=== PATIENT | male | born 1975 | race Caucasian/White ===

== ENCOUNTER 2021-02-14 10:43 | Emergency (ER) | payer OTHER, SELFPAY ==
[2021-02-14 10:53] VITALS: BP 118/97; PULSE 83; RESP 18; TEMP 36.1; O2SAT 99
--- NOTE | 2021-02-14 11:20 | ED.ABDPAIN ---
HPI - Abdominal Pain General Chief Complaint: Abdominal Pain Stated Complaint: poss kidney infection Time Seen by Provider: 02/14/21 11:02 Source: patient Mode of arrival: ambulatory Limitations: no limitations History of Present Illness HPI narrative: This is a 45 year old male who presents for evaluation of left lower abdominal pain. He developed pain 4 days ago and he states his pain has been constant. He has not been taking anything for pain but his pain has improved. He states this pain does radiate to his lower back . He denies associated nausea, vomiting, diarrhea, constipation, chills or fever. He has intermittent dysuria. He states 1 year ago he had similar pain with a kidney infection. He denies history of diverticulitis. His pain is 4/10. Related Data Home Medications Medication Instructions Recorded Confirmed sumatriptan succinate mg PO 02/14/21 Allergies Allergy/AdvReac Type Severity Reaction Status Date / Time No Known Allergies Allergy Unknown Verified 02/14/21 10:58 Review of Systems Review of Systems: All systems reviewed & are unremarkable except as noted in HPI and below PMFSH Past Medical History Medical History (Updated 02/14/21 @ 11:52 by Karina Marie MD) Hyperlipidemia Migraine Surgical History Surgical History (Updated 02/14/21 @ 11:27 by Karina Marie MD) No significant past surgical history Social History Social History (Updated 02/14/21 @ 11:28 by Karina Marie MD) Smoking status: Never smoker Exam Const: General: no acute distress and alert Orientation/consciousness: patient oriented x3 Eyes: EOM: EOMs intact bilaterally Resp: Effort & Inspection: normal respiratory effort and no retractions Auscultation: clear to auscultation bilaterally Cardio: Rate: regular rate Rhythm: regular rhythm Heart sounds: no murmurs GI: GI Palp: Yes Soft to palpation, Yes Tenderness to palpation present (GI) (LLQ), No Guarding due to palpation present (GI) and No Rigid due to palpation Auscultation: normal bowel sounds : General: Yes no CVA tenderness Skin: General skin exam: normal color Rashes: no rashes Neuro: General: patient oriented x3, moves all extremities and CN's II-XI intact bilaterally Psych: Mental Status: mental status grossly normal Affect: normal affect Course Reevaluation(s) Reevaluation #1: Patient walked out of ER. Nursing staff reported patient stated it was taking too long. Date: 02/14/21 Time: 11:51 Vital Signs Vital signs: Vital Signs Temperature 97.0 F L 02/14/21 10:53 Pulse Rate 83 02/14/21 10:53 Respiratory Rate 18 02/14/21 10:53 Blood Pressure 118/97 H 02/14/21 10:53 Pulse Oximetry 99 02/14/21 10:53 Temperature 97.0 F L 02/14/21 10:53 Pulse Rate 82 02/14/21 11:59 Respiratory Rate 16 02/14/21 11:59 Blood Pressure 133/95 H 02/14/21 11:59 Pulse Oximetry 96 02/14/21 11:59 Discharge Plan Discharge Clinical Impression: Abdominal pain, acute, left lower quadrant Patient Disposition: Left Against Medical Advice Condition: Guarded Prognosis Instructions: Antibiotic Form Prescriptions: No Action sumatriptan succinate 100 mg tablet PO RF: 0 Follow-up/Referrals: Juan,SRINIVAS Pride [Primary Care Provider] -
--- NOTE | 2021-02-14 11:49 | PC.NURSE ---
1145 pt left AMA. RN asked why pt wanted to leave, pt stated, I just want to leave, I don't want to be here. Pt signed AMA form.
[2021-02-14 11:59] VITALS: BP 133/95; PULSE 82; RESP 16; O2SAT 96
== END 2021-02-14 11:45 | disposition left against medical advice (07) ==
PROVIDERS: Emergency Provider General Practice; PCP Physician Assistant
DX: R10.32 Left lower quadrant pain (principal); E78.5 Hyperlipidemia, unspecified
CPT/HCPCS: 99281

== ENCOUNTER 2021-10-25 10:56 | Outpatient (CLI) | payer OTHER, SELFPAY | END 2021-10-25 10:57 | disposition home or self-care (01) | LOC: ANHAUDIO 10:56 | PROVIDERS: PCP Physician Assistant; Visit Provider Nurse Practitioner Family | DX: H93.13 Tinnitus, bilateral (principal) | CPT/HCPCS: 92557; 92567 ==

== ENCOUNTER 2021-11-29 07:55 | Outpatient (RCR) | payer OTHER, SELFPAY | END 2021-11-29 23:59 | disposition home or self-care (01) | LOC: ANHAUDIO 07:55 | PROVIDERS: PCP Physician Assistant; Visit Provider Physician Assistant | DX: Z46.1 Encounter for fitting and adjustment of hearing aid (principal) | CPT/HCPCS: V5160; V5257 ==

== ENCOUNTER 2023-08-29 09:09 | Emergency (ER) | payer SELFPAY ==
--- NOTE | ~2023-08-29 | XR_ITS ---
EXAMINATION: XR chest 2V DATE: 08/29/2023 09:31 INDICATION: Left-sided chest pain TECHNIQUE: PA and lateral views of the chest are obtained. COMPARISON: 05/17/2014 FINDINGS: The lungs are free of acute opacities. No pleural effusion or pneumothorax. The cardiomedia stinal silhouette is normal. There is mild thoracic spondylosis. A calcified nodule of the left upper lobe is consistent with old granulomatous disease. IMPRESSION: 1. No acute cardiopulmonary abnormality. Reviewed, dictated and finalized at location A.
[2023-08-29 09:16] VITALS: PULSE 102; RESP 20; O2SAT 97
--- NOTE | 2023-08-29 09:16 | ECG_ITS ---
Measurements Intervals [place] Rate: 96 P: 26 [place]: 122 QRS: 31 QRSD: 92 T: 24 QT: 342 QTc: 434 Interpretive Statements SINUS RHYTHM WITH OCCASIONAL VENTRICULAR PREMATURE COMPLEXES NONSPECIFIC ST & T-WAVE ABNORMALITY NO PREVIOUS ECG AVAILABLE FOR COMPARISON Electronically Signed On 08-29-2023 15:45:24 CDT by Abigail Hopson M.D.
[2023-08-29 09:17] VITALS: BP 138/92; PULSE 102; PULSE 97; RESP 17; RESP 18; TEMP 36.9; O2SAT 100; O2SAT 98
[2023-08-29 09:20] VITALS: PULSE 105
[2023-08-29] MEDS: ASPIRIN 81 MG CHEWABLE TABLET 324 MG PO (09:24)
[2023-08-29 09:34] VITALS: PULSE 95; RESP 21; O2SAT 98
--- NOTE | 2023-08-29 09:37 | ED.CHESTPAIN ---
HPI - Chest Pain General Chief Complaint: Chest Pain Stated Complaint: chest pain Time Seen by Provider: 08/29/23 09:23 History of Present Illness HPI narrative: This is a 48-year-old male, with past history of hypertension hyperlipidemia, presenting to the emergency department complaining of left upper chest pain for the past day. The patient states this yesterday, after waking he noted a dull, 3/10 and constant pain in the left upper chest that does not radiate. There are no known aggravating factors, though it appeared to improve with lying down. He has no other complaints today. Related Data Home Medications Medication Instructions Recorded Confirmed sumatriptan succinate 100 mg tablet mg PO 02/14/21 Allergies Allergy/AdvReac Type Severity Reaction Status Date / Time No Known Allergies Allergy Unknown Verified 08/29/23 09:21 Review of Systems Review of Systems: CONSTITUTIONAL: Denies fever, chills, or sweats. CARDIOVASCULAR: Chest pain denies palpitations, or edema. RESPIRATORY: Denies cough or dyspnea. GASTROINTESTINAL: Denies abdominal pain, nausea, vomiting, or diarrhea. GENITOURINARY: Denies dysuria or hematuria. SKIN: Denies rash or itching. MUSCULOSKELETAL: Denies back pain, joint pain, or myalgia. NEUROLOGIC: Denies headache, numbness, dizziness, or weakness. PSYCHIATRIC: Denies anxiety or depression. [facility] Past Medical History Medical History (Updated 08/30/23 @ 00:00 by Christy Richardson) HTN (hypertension), benign Hyperlipidemia Migraine Surgical History Surgical History No significant past surgical history Social History Social History (Updated 08/29/23 @ 09:48 by Henri Bennett MD) Smoking status: Never smoker Alcohol intake: never Substance use: never Exam Narrative: GENERAL: Well-developed, well-nourished, and in no acute distress. HEAD: Normocephalic, atraumatic. EYES: PERRLA and EOMI. CHEST: Clear to auscultation. No respiratory distress. No wheezes rales or rhonchi. Reproducible pain to palpation of the left anterior chest wall, just medial to the left shoulder HEART: Regular rate and rhythm. No murmur heard. Normal peripheral pulses. ABDOMEN: Soft, nontender, nondistended, normal active bowel sounds. EXTREMITIES: Normal range of motion. No edema. SKIN: Warm, dry, no rash. NEURO: Alert and oriented x3. Moving all 4 limbs purposefully. PSYCH: Normal mood and affect. Course Course Emergency Course: 10:27 - CBC unremarkable. Chemistries demonstrate mild hyperglycemia at 113 but are otherwise unremarkable. EKG not concerning for ischemia. Troponin negative. Chest x-ray unremarkable. Heart score 3. Given the reproduction of the patient's pain with palpation, negative troponin and EKG, I suspect the patient's pain is musculoskeletal in nature. I have a low suspicion for ACS. Will discharge with recommendations for RICE therapy and follow-up with his primary care doctor. Discussed return and emergency precautions including signs/symptoms of ACS and respiratory distress. The patient voiced understanding and is comfortable with the plan. All questions answered to his satisfaction. Vital Signs Vital signs: Vital Signs Pulse Rate 102 H 08/29/23 09:16 Respiratory Rate 20 08/29/23 09:16 Pulse Oximetry 97 08/29/23 09:16 Temperature 98.4 F 08/29/23 09:17 Pulse Rate 91 08/29/23 10:56 Respiratory Rate 20 08/29/23 10:56 Blood Pressure 134/80 08/29/23 10:56 Pulse Oximetry 96 08/29/23 10:56 Oxygen Delivery Room Air 08/29/23 09:17 MDM - Chest Pain MDM Narrative Medical decision making narrative: Plan: Labs, imaging, pain control, EKG, troponin, reassess Differential Diagnosis Differential diagnosis: Likely pneumothorax, costochondritis and other (Musculoskeletal pain, ACS, metabolic abnormality, other) Lab Data 08/29/23 09:26 08/29/23 09:26
[2023-08-29 09:39] LABS: Basophils Absolute Auto 0.1 K/mm3 (0.0-0.1); Basophils Percent Auto 0.6 % (0.2-1.2); Eosinophils Absolute Auto 0.1 K/mm3 (0-0.3); Eosinophils Percent Auto 1.8 % (0-4.4); Hematocrit 42.8 % (42.0-52.0); Hemoglobin 15.1 g/dL (14.0-18.0); Immature Granulocyte Absolute 0.02 K/mm3 (0.00-0.031); Immature Granulocyte Percent A 0.3 % (0-0.5); Lymphocytes Absolute Auto 1.84 K/mm3 (0.9-3.2); Lymphocytes Percent Auto 23.4 % (18.3-44.2); Mean Corpuscular HGB Conc 35.3 g/dl (32-36); Mean Corpuscular Volume 90.7 fl (80-100); Mean Platelet Volume 10.4 fl (7.4-10.4); Monocytes Absolute Auto 0.6 K/mm3 (0.1-0.6); Neutrophils Absolute Auto 5.3 K/mm3 (1.3-6.7); Neutrophils Percent Auto 66.9 % (45.5-73.1); Platelet Count Result 220 k/mm3 (150-375); Red Blood Count 4.72 M/mm3 (4.6-6.20); Red Cell Distribution Width 12.8 % (11.5-14.5); White Blood Count 7.9 K/mm3 (4.5-10.0)
[2023-08-29 09:44] LABS: Prothrombin Time 13.5 Seconds (11.1-14.7)
[2023-08-29 09:45] LABS: Partial Thromboplastin Time 24.5 SECONDS (22.3-36.8)
[2023-08-29] MEDS: NITROGLYCERIN SL 0.4 MG TABLET SUBLINGUAL (09:46)
--- NOTE | 2023-08-29 09:47 | PC.NURSE ---
NTG given SL for chest pain 02/02.
--- NOTE | 2023-08-29 09:53 | PC.NURSE ---
Reports chest pain 12/05. VS 130/84 93 19 94%. 2nd NTG given.
[2023-08-29 09:59] LABS: Alanine Aminotransferase 49 U/L (6-50); Albumin Level 4.7 g/dL (3.5-5.1); Alkaline Phosphatase 97 U/L (38-126); Anion Gap 11 mmol/L (8-16); Aspartate Amino Transferase 40 U/L (17-59); Blood Urea Nitrogen 13 mg/dL (9-20); Calcium 9.2 mg/dL (8.4-10.2); Carbon Dioxide 24 mmol/L (22-30); Chloride 106 mmol/L (98-107); Estimated CRCL calculation 116 ml/min; Estimated Glomerular Filt Rate > 60; Glucose 113 mg/dL (65-110); Lipase 103 U/L (23-300); Potassium 3.5 mmol/L (3.4-5.0); Sodium 141 mmol/L (137-145)
[2023-08-29 10:04] VITALS: BP 126/88; PULSE 98; RESP 20; O2SAT 95
--- NOTE | 2023-08-29 10:04 | PC.NURSE ---
Denies further cp
[2023-08-29 10:09] LABS: Troponin I < 0.012 ng/mL (0.000-0.034)
[2023-08-29 10:14] LABS: D Dimer 0.35 ug/mL (<0.48)
[2023-08-29 10:56] VITALS: BP 134/80; PULSE 91; RESP 20; O2SAT 96
== END 2023-08-29 10:58 | disposition home or self-care (01) ==
PROVIDERS: Emergency Provider Preventive Medicine Aerospace Medicine; PCP Internal Medicine
DX: R07.89 Other chest pain (principal); M94.0 Chondrocostal junction syndrome [Tietze]; E78.5 Hyperlipidemia, unspecified; I10 Essential (primary) hypertension; I49.3 Ventricular premature depolarization; R94.31 Abnormal electrocardiogram [ECG] [EKG]
CPT/HCPCS: 36415; 71046; 80053; 83690; 84484; 85025; 85380; 85610; 85730; 93005; 99284; A9270

== ENCOUNTER 2025-03-23 14:11 | Emergency (ER) | payer SELFPAY ==
[2025-03-23 14:23] VITALS: BP 135/78; PULSE 98; RESP 17; TEMP 36.7; O2SAT 99
--- OUTSIDE RECORDS SUMMARY | 2025-03-23 16:13 | XMS_ITS | CONTINUITY OF CARE DOCUMENT ---
Author Name [email or web address] Address Unknown Organization [facility] Address [address] [place] [address] Phone [phone] Care Team Providers Care Power Washer Name Role Phone Colby gArawal MD Unavailable ADRIANA WOODARD Unavailable ADRIANA WOODARD Unavailable PROBLEMS Condition Status Date Provider Notes Dyslipidemia active [place] [place] Liver steatosis active Colby Agrawal MD ENCOUNTERS Date Type Provider Location Encounter Diagnosis - In-person encounter Office Visit Colby Agrawal MD [facility] Liver steatosis - In-person encounter Office Visit Colby Agrawal MD [facility] VITAL SIGNS Date Observation Value Provider Body Mass Index (Ratio) 29.27 kg/m2 Christiano Vides blood pressure, diastolic 80 mm[Hg] Sanna [facility] blood pressure, systolic 138 mm[Hg] Jeannette Vogelogsharan blood pressure, diastolic 80 mm[Hg] Kathy Ferrer blood pressure, systolic 138 mm[Hg] Roxana Ferrer oxygen saturation, oximetry 97 % Jaky Ferrer respiratory rate E&M 16 /min Casimiro Ferrer pulse rate 100 /min Jaky lyn weight E&M 228 [lb_av] Jaky lyn height E&M 74 [in_i] Jaky lyn oxygen saturation, oximetry 98 % Medardo Manacop blood pressure, diastolic 80 mm[Hg] Sharla seph [place] blood pressure, systolic 110 mm[Hg] Oswaldo eph [place] pulse rate 72 /min Council [place] respiratory rate E&M 16 /min Medardo [place] weight E&M 183 [lb_av] [facility] [place] ALLERGIES No Known Drug Allergies RESULTS Date Observation Value Provider Reference Range Interpretation Location magnesium, serum 2.2 mg/dL [facility] 1.6-2.3 triiodothyronine (T3), serum 160 ng/dL [facility] 71-180 pro brain natriuretic peptide <5 pg/mL [facility] 0-86 thyroid stimulating hormone, serum 0.566 u[IU]/mL [facility] 0.450-4.500 thyroxine, serum, free 1.06 ng/dL [facility] 0.82-1.77 alanine aminotransferase (SGPT), serum 67 1/L [facility] 0-44 High aspartate aminotransferase (SGOT), serum 41 1/L [facility] 0-40 High alkaline phosphatase, serum 140 1/L [facility] 48-121 High bilirubin, serum, total 0.8 mg/dL [facility] 0.0-1.2 albumin/globulin ratio, serum 1.7 [facility] 1.2-2.2 globulin, serum 3.0 [facility] 1.5-4.5 albumin, serum 5.0 g/dL [facility] 4.0-5.0 protein, total, serum 8.0 g/dL [facility] 6.0-8.5 calcium, serum 10.2 mg/dL [facility] 8.7-10.2 carbon dioxide, venous blood 22 mmol/L [facility] 20-29 chloride, serum 101 mmol/L [facility] 96-106 potassium, serum 4.2 mmol/L [facility] 3.5-5.2 sodium, serum 137 mmol/L [facility] 852-343 0253/06/ 24 urea nitrogen/creatinine ratio, serum 18 [facility] 9-20 eGFR if 108 mL/min/{1 .73_m2} [facility] >59 eGFR if not 93 mL/min/{1 .73_m2} [facility] >59 creatinine, serum 0.98 mg/dL [facility] 0.76-1.27 urea nitrogen, blood 18 mg/dL [facility] 6-24 blood glucose, random 127 [facility]/dL [facility] High thyroid stimulating hormone, serum 0.775 u[IU]/mL Leona Hoyos RN thyroxine, serum, free 1.21 ng/dL Leona Hoyos RN platelet count 234 10*3/uL Leona Hoyos RN hematocrit, blood 45.4 % Leona Hoyos RN hemoglobin, blood 15.4 g/dL Leona Hoyos RN leukocyte count, blood 8.3 10*3/mm3 Leona Hoyos RN triglyceride, serum, fasting 93 mg/dL Leona Hoyos RN HDL cholesterol, serum 51 mg/dL Leona Hoyos RN LDL cholesterol, serum 130 mg/dL Leona Hoyos RN cholesterol, serum 200 mg/dL Leona Hoyos RN HISTORY OF MEDICATION USE Medication Status Instructions Dates Provider Indications Com ments IBUPROFEN TABLET active 4 tablets by mouth in the morning Medardo Sanchez TYLENOL WITH CODEINE #3 TABLET completed 1 tablet by mouth at bedtime - 0 Jaky Ferrer LIPITOR TABLET active 1 tablet by mout h daily Medardo Manacop SOCIAL HISTORY Date Observation Value Provider number of grandchildren Colby Agrawal MD smoking status Never smoker Colby christopher MD social history reviewed E&M revi ewed - no changes required Colby Agrawal MD physical exercise, f requency, days per week no Jaky Ferrer caffeine use, averag e drinks per day yes Jaky Ferrer smoking status never smoker Rachelle Umberto social history E&M Marital Statu s: L jayden with family/friends E thnicity: Kole Turcios RN social history reviewed E&M reviewed Kole Turcios RN physical exercise, f requency, days per week no [facility] caffeine use, averag e drinks per day yes [facility] alcohol use, average drinks per day none [facility] smoking status Non-smoker [facility] MENTAL STATUS Date Observation Value Provider assessment of judgme nt and insight E&M Alert and oriented to time, place and person. Mood and affect are normal. Kole Turcios RN INSURANCE PROVIDERS Payer name Policy type / Coverage type [employer] party ID [place] MEDICA[employer] (2) Medicaid [id number] ADVANCE DIRECTIVES Name Date DISCUSSED - NO DECISION MADE TREATMENT PLAN Date Name Performer [id number],S, Dinora navas [id number],C,N o recurrence for the past 10-15 years per patient report. Colby Agrawal MD [id number],C,C ontinues on Lipitor. Lipid panel pending. Colby gArawal MD [id number],C,P alpitations for the past month. Will arrange echo and heart monitor. Colby Agrawal MD Cardiology Dinora Vides Cardiology:No recurr ence for the past 10-15 years per patient report. Colby Agrawal MD Cardiology:Continues on Lipitor. Lipid panel pending. Colby Agrawal MD Cardiology:Palpitati ons for the past month. Will arrange echo and heart monitor. Colby Agrawal MD Date Name Complete Echo MAGNESIUM PROBNP, N TERMINAL COMPREHENSIVE METABO LIC PANEL, W/EGFR TSH, 3RD GENERATION T3, TOTAL T-4, FREE Monitor - Telemetry (Mobile Cardiac) Holter Monitor 24 Hr Event Recorder Stress Test - Nuclea r Complete Echo HISTORY OF PROCEDURES Procedure Date Procedure Name Provider Procedure Notes S tatus Event Monitor Colby Agrawal MD comp leted EKG Colby Agrawal MD complet ed
--- OUTSIDE RECORDS SUMMARY | 2025-03-23 16:13 | XMS_ITS | Clinical Summary ---
Demographics Address [facility][birth year][address] [address] Home Phone Preferred Language Unknown Marital Status Unknown Worship Affiliation Unknown Race White Ethnic Group Unknown Author Organization [facility] Address [facility] [place] [address] Care Team Providers Care Front Desk Worker Name Role Phone Unavailable Primary Care Provider Unavailabl e Social History Tobacco Use Types Packs/Day Years Used Date Smoking Tobacco: Never Assessed Sex and Gender Information Value Date Recorded Sex Assigned at Not on file Legal Sex Male 6:42 PM CDT Gender Identity Not on file Sexual Orientation Not on file Plan of Treatment Health Maintenance Due Date Last Done Comments Colorectal Cancer Screening Colonoscopy (10 Years) 1976 Annual Physical 1979 Hepatitis C 1994 DTaP, Tdap and Td Vaccines ( 1 - Tdap) 1995 Hepatitis B Vaccines (1 of 3 - 19+ 3-dose series) 1995 COVID-19 Vaccine ( - 2023-2 5 season) 2024 Meningococcal B Vaccine Aged Out No l onger eligible based on patient's age to complete this topic Meningococcal Vaccine Aged Out No car wayne eligible based on patient's age to complete this topic Pneumococcal Vaccine: Pediat rics (0 to 5 Years) and At-Risk Patients (6 to 49 Years) Aged Out No longer eligible b ased on patient's age to complete this topic RSV Immunizations Under 20 Months Aged Out No longer eligible based on patient's age to complete this topic
--- OUTSIDE RECORDS SUMMARY | 2025-03-23 16:13 | XMS_ITS | Data Portability ---
[facility] Address [address] [place] [address] Care Team Providers Care Counselor At Law Name Role Phone WINIFRED DICKEY Primary Care Provider Assessment Encounter Date Assessment Date Assessment LastModified by Organization Details LastModified Time 03/11/2024 03/11/2024 Blood pressure controlled. Dyslipidemia check labs low vitamin D level check labs negative Cologuard in 2022. Hepatic steatosis weight loss follow-up with ar in 6 months [email or web address] Not available 03/23/2024 15:19:52 09/16/2024 09/16/2024 hypertension controlled. Healthy lifestyle care instructions. Blood work. we will side effects from medications he will follow up in 6 months continue with the losartan atorvastatin and conservative measures for GERD [email or web address] Not available 09/16/2024 21:53:34 01/20/2025 01/20/2025 blood pressure is controlled healthy lifestyle care instructions blood work to workup his anemia to include thyroid studies cortisol testosterone. He will follow up in 4 months continue current therapy [email or web address] Not available 01/20/2025 17:51:53 Plan of Treatment Reminders Order Date Submit Date Provider Last Modified By Organization Details Last Modified Time Details Appointments ANY 15 2024 01:00P M Winifred Dickey MD Not available Not available Not available Lab CBC w/ auto diff 2024 025 [email or web address] [facility], [address] [address], [place], [address], 03/05/2025 11:21:55 CMP, serum or plasma 2024 025 [email or web address] [facility], [address], [place], [address], 01/21/2025 13:15:23 lipid panel, serum 2024 025 [email or web address], [address], [place], [address], 03/05/2025 11:21:55 testoster one, free + total, serum 2024 025 [facility], [address], [place], [address], 03/05/2025 11:21:55 cortisol, serum or plasma 2024 025 [facility], [address], [place], [address], 03/05/2025 11:21:55 T4, free, serum 2024 025 [facility], [address], [place], [address], 03/05/2025 11:21:55 T3, free, serum or plasma 2024 025 [facility], [address], [place], [address], 03/05/2025 11:21:55 TSH, ultra-sen sitive, serum 2024 025 [facility], [address], [place], [address], 03/05/2025 11:21:56 CMP, serum or plasma 2023 024 IRENE [facility], [address], [place], [address], 09/17/2024 06:21:54 lipid panel, serum 2023 024 [facility], [address], [place], [address], 09/17/2024 06:21:53 PSA, total, serum or plasma 2023 024 [facility], [address], [place], [address], 06/17/2024 10:14:37 vitamin D, 25-hydrox y, total, serum 2023 024 [facility], [address], [place], [address], 06/17/2024 10:14:38 CBC w/ auto diff 2023 024 [facility], [address], [address], [place], [address], 06/17/2024 10:14:36 CMP, serum or plasma 2023 024 [facility], [address], [address], [place], [address], 06/17/2024 10:14:35 lipid panel, serum 2023 024 [facility], [address], [place], [address], 06/17/2024 10:14:34 Referral None recorded. Procedures None recorded. Surgeries None recorded. Imaging None recorded. Medication Orders ciproflox acin [address] [id number], [address] [facility], [place], [place], [id number], 01/20/2025 17:03:24 folic acid 1 mg tablet 2023 024 [id number], [address] [facility], [place], [place], [id number], 03/11/2024 16:00:57 Patient TargetsNo targets recorded. Patient Instructions Encounter Date Encounter Id Patient Instructions Last Modified By Organization Details Last Modified Time 09/06/2023 [id number] When You Want to Lose Weight: Care Instructions [email or web address] Not available 09/06/2023 17:50:04 A healthy lifestyle: care instructions sieh Not available 09/06/2023 17:50:04 folate deficienc y anemia: care instructions si Not available 09/06/2023 17:50:04 learning about high blood pressure [email or web address] Not available 09/06/2023 17:50:04 high cholesterol : care instructions [facility] Not available 09/06/2023 17:50:04 12/13/2023 [id number] Urinary Tract Infections (UTI) in Men: Care Instructions [facility] Not available 12/14/2023 12:24:17 A healthy lifestyle: care instructions sieh Not available 12/14/2023 12:24:17 09/16/2024 [id number] A healthy lifestyle: care instructions [email or web address] Not available 09/16/2024 13:01:35 01/20/2025 [id number] A healthy lifestyle: care instructions [email or web address] Not available 01/20/2025 17:26:15 Reason for Referral None Reported. Results Created Date Observation Date Name Description Value Unit Range Abnormal Flag Note LastModifiedBy Organization Detail LastModifiedTime 06/16/20 24 06/17/2024 LIPID PANEL cholesterol, total 103 mg/dL 100-19 9 Not Available [facility] ([facility]) [address] [facility] [address], [place], [address], 06/17/2024 10:14:34 06/16/20 24 06/17/2024 LIPID PANEL triglyceride s 75 mg/dL 0-149 Not Available [facility] ([facility]) [address] [facility] [address], [place], [address], 06/17/2024 10:14:34 06/16/20 24 06/17/2024 LIPID PANEL HDL cholesterol 38 mg/dL >39 below low normal Not Available [facility] ([facility]) [address] [facility], [place], [address], 06/17/2024 10:14:34 06/16/20 24 06/17/2024 LIPID PANEL VLDL cholesterol darrion 16 mg/dL 5-40 Not Available [facility] ([facility]) [address] [facility], [place], [address], 06/17/2024 10:14:34 06/16/20 24 06/17/2024 LIPID PANEL LDL chol calc ([facility]) 49 mg/dL 0-99 Not Available [facility] ([facility]) [address] [facility] [place], [address], 06/17/2024 10:14:34 06/16/20 24 06/17/2024 COMP. METAB OLIC PANEL (14) glucose 109 mg/dL 70-99 above high normal Not Available [facility] ([facility]) [address] [place], [address], 06/17/2024 10:14:35 06/16/20 24 06/17/2024 COMP. METAB OLIC PANEL (14) BUN 16 mg/dL 6-24 Not Available [facility] ([facility]) [address] [place], [address], 06/17/2024 10:14:35 06/16/20 24 06/17/2024 COMP. METAB OLIC PANEL (14) creatinine 0.84 mg/dL 0.76-1 .27 Not Available [facility] ([facility]) [address] [facility] [place], [address], 06/17/2024 10:14:35 06/16/20 24 06/17/2024 COMP. METAB OLIC PANEL (14) eGFR 108 mL/mi n/1.7 3 >59 Not Available [facility] ([facility]) [address] [place], [address], 06/17/2024 10:14:35 06/16/20 24 06/17/2024 COMP. METAB OLIC PANEL (14) BUN/creatini ne ratio 19 9-20 Not Available [facility] ([facility]) [address] [facility] [place], [address], 06/17/2024 10:14:35 06/16/20 24 06/17/2024 COMP. METAB OLIC PANEL (14) sodium 142 mmol/ L 134-14 4 Not Available [facility] ([facility]) [address] [facility] [place], [address], 06/17/2024 10:14:35 06/16/20 24 06/17/2024 COMP. METAB OLIC PANEL (14) potassium 4.4 mmol/ L 3.5-5. 2 Not Available [facility] ([facility]) [address] [facility] [address], [place], [address], 06/17/2024 10:14:35 06/16/20 24 06/17/2024 COMP. METAB OLIC PANEL (14) chloride 105 mmol/ L 96-106 Not Available [facility] ([facility]) [address] [facility] [place], [address], 06/17/2024 10:14:35 06/16/20 24 06/17/2024 COMP. METAB OLIC PANEL (14) carbon dioxide, total 23 mmol/ L 20-29 Not Available [facility] ([facility]) [address] [place], [address], 06/17/2024 10:14:35 06/16/20 24 06/17/2024 COMP. METAB OLIC PANEL (14) calcium 9.8 mg/dL 8.7-10 .2 Not Available [facility] ([facility]) [address] [place], [address], 06/17/2024 10:14:35 06/16/20 24 06/17/2024 COMP. METAB OLIC PANEL (14) protein, total 7.4 g/dL 6.0-8. 5 Not Available [facility] ([facility]) [address] [place], [address], 06/17/2024 10:14:35 06/16/20 24 06/17/2024 COMP. METAB OLIC PANEL (14) albumin 4.8 g/dL 4.1-5. 1 Not Available [facility] ([facility]) [address] [place], [place], [address], 06/17/2024 10:14:35 06/16/20 24 06/17/2024 COMP. METAB OLIC PANEL (14) globulin, total 2.6 g/dL 1.5-4. 5 Not Available [facility] ([facility]) [address], [place], [address], 06/17/2024 10:14:35 06/16/20 24 06/17/2024 COMP. METAB OLIC PANEL (14) bilirubin, total 1.0 mg/dL 0.0-1. 2 Not Available [facility] ([facility]) [address] [place], [address], 06/17/2024 10:14:35 06/16/20 24 06/17/2024 COMP. METAB OLIC PANEL (14) alkaline phosphatase 96 IU/L 44-121 Not Available [facility] ([facility]) [address] [place], [place], [address], 06/17/2024 10:14:35 06/16/20 24 06/17/2024 COMP. METAB OLIC PANEL (14) AST (SGOT) 31 IU/L 0-40 Not Available [facility] ([facility]) [address], [place], [address], 06/17/2024 10:14:35 06/16/20 24 06/17/2024 COMP. METAB OLIC PANEL (14) ALT (SGPT) 52 IU/L 0-44 above high normal Not Available [facility] ([facility]) [address] [facility], [place], [address], 06/17/2024 10:14:35 06/16/20 24 06/17/2024 CBC WITH DIFFE RENTI AL/PL ATELE T WBC 7.1 x10e3 /uL 3.4-10 .8 Not Available [facility] ([facility]) [address] [facility], [place], [address], 06/17/2024 10:14:36 06/16/20 24 06/17/2024 CBC WITH DIFFE RENTI AL/PL ATELE T RBC 4.80 x10e6 /uL 4.14-5 .80 Not Available [facility] ([facility]) [address] [facility], [place], [address], 06/17/2024 10:14:36 06/16/20 24 06/17/2024 CBC WITH DIFFE RENTI AL/PL ATELE T hemoglobin 15.2 g/dL 13.0-1 7.7 Not Available [facility] ([facility]) [address] [facility], [place], [address], 06/17/2024 10:14:36 06/16/20 24 06/17/2024 CBC WITH DIFFE RENTI AL/PL ATELE T hematocrit 45.1 % 37.5-5 1.0 Not Available [facility] ([facility]) [address] [facility], [place], [address], 06/17/2024 10:14:36 06/16/20 24 06/17/2024 CBC WITH DIFFE RENTI AL/PL ATELE T MCV 94 fL 79-97 Not Available [facility] ([facility]) [address] [facility], [place], [address], 06/17/2024 10:14:36 06/16/20 24 06/17/2024 CBC WITH DIFFE RENTI AL/PL ATELE T MCH 31.7 pg 26.6-3 3.0 Not Available [facility] ([facility]) [address] [facility], [place], [address], 06/17/2024 10:14:36 06/16/20 24 06/17/2024 CBC WITH DIFFE RENTI AL/PL ATELE T MCHC 33.7 g/dL 31.5-3 5.7 Not Available [facility] ([facility]) [address] [facility], [place], [address], 06/17/2024 10:14:36 06/16/20 24 06/17/2024 CBC WITH DIFFE RENTI AL/PL ATELE T RDW 11.8 % 11.6-1 5.4 Not Available [facility] ([facility]) [address] [facility], [place], [address], 06/17/2024 10:14:36 06/16/20 24 06/17/2024 CBC WITH DIFFE RENTI AL/PL ATELE T platelets 230 x10e3 /uL 150-45 0 Not Available [facility] ([facility]) [address] [facility], [place], [address], 06/17/2024 10:14:36 06/16/20 24 06/17/2024 CBC WITH DIFFE RENTI AL/PL ATELE T neutrophils 58 % notest ab. Not Available [facility] ([facility]) [address] [facility], [place], [address], 06/17/2024 10:14:36 06/16/20 24 06/17/2024 CBC WITH DIFFE RENTI AL/PL ATELE T lymphs 30 % notest ab. Not Available [facility] ([facility]) [address] [place], [address], 06/17/2024 10:14:36 06/16/20 24 06/17/2024 CBC WITH DIFFE RENTI AL/PL ATELE T monocytes 6 % notest ab. Not Available [facility] ([facility]) [address] [place], [address], 06/17/2024 10:14:36 06/16/20 24 06/17/2024 CBC WITH DIFFE RENTI AL/PL ATELE T eos 5 % notest ab. Not Available [facility] ([facility]) [address] [facility], [place], [address], 06/17/2024 10:14:36 06/16/20 24 06/17/2024 CBC WITH DIFFE RENTI AL/PL ATELE T basos 1 % notest ab. Not Available [facility] ([facility]) [address] [facility], [place], [address], 06/17/2024 10:14:36 06/16/20 24 06/17/2024 CBC WITH DIFFE RENTI AL/PL ATELE T neutrophils (absolute) 4.1 x10e3 /uL 1.4-7. 0 Not Available [facility] ([facility]) [address] [facility], [place], [address], 06/17/2024 10:14:36 06/16/20 24 06/17/2024 CBC WITH DIFFE RENTI AL/PL ATELE T lymphs (absolute) 2.1 x10e3 /uL 0.7-3. 1 Not Available [facility] ([facility]) [address] [facility], [place], [address], 06/17/2024 10:14:36 06/16/20 24 06/17/2024 CBC WITH DIFFE RENTI AL/PL ATELE T monocytes(ab solute) 0.4 x10e3 /uL 0.1-0. 9 Not Available [facility] ([facility]) [address] [facility], [place], [address], 06/17/2024 10:14:36 06/16/20 24 06/17/2024 CBC WITH DIFFE RENTI AL/PL ATELE T eos (absolute) 0.4 x10e3 /uL 0.0-0. 4 Not Available [facility] ([facility]) [address] [facility], [place], [address], 06/17/2024 10:14:36 06/16/20 24 06/17/2024 CBC WITH DIFFE RENTI AL/PL ATELE T baso (absolute) 0.1 x10e3 /uL 0.0-0. 2 Not Available [facility] ([facility]) [address] [place], [address], 06/17/2024 10:14:36 06/16/20 24 06/17/2024 CBC WITH DIFFE RENTI AL/PL ATELE T immature granulocytes 0 % notest ab. Not Available [facility] ([facility]) [address] [facility], [place], [address], 06/17/2024 10:14:36 06/16/20 24 06/17/2024 CBC WITH DIFFE RENTI AL/PL ATELE T immature grans (abs) 0.0 x10e3 /uL 0.0-0. 1 Not Available [facility] ([facility]) [address] [facility], [place], [address], 06/17/2024 10:14:36 06/16/20 24 06/17/2024 PROST ATE-S PECIF IC AG prostate specific Ag 0.4 NG/mL 0.0-4. 0 Janette ECLIA metho dolog y. Accor ding to the Ameri can Urolo gical Assoc iatio n, Serum PSA shoul d decre ase and remai n at undet ectab le level s after radic al prost atect demar. The AUA defin es bioch emica l recur rence as an initi al PSA value 0.2 ng/mL or great er follo wed by a subse quent confi rmato ry PSA value 0.2 ng/mL or great er. Value s obtai brianna with diffe rent assay metho ds or kits canno t be used inter rhoades eably . Resul ts canno t be inter prete d as absol [place] evide nce of the prese nce or absen ce of liz oswald se. Not Available [facility] ([facility]) [address] [facility], [place], [address], 06/17/2024 10:14:37 06/16/20 24 06/17/2024 VITAM IN D, 25-HY DROXY vitamin D, 25-hydroxy 37.0 NG/mL 30.0-1 00.0 Vitam in D defic iency has been defin ed by the Insti tute of Medic ine and an Endoc rine Socie ty pract ice guide line as a level of serum 25-OH vitam in D less than 20 ng/mL (1,2) . The Endoc rine Socie ty went on to furth er defin e vitam in D insuf ficie ncy as a level betwe en 21 and 29 ng/mL (2). 1. IOM (Inst itute of Medic ine). 2010. Dieta ry refer ence valorie es for calci um and D. Radhames isaac [place]: The Natio nal [facility] Press . 2. Michael laurent MF, Alexis lr [place], [place] off-F errar i AWAN, et al. Evalu ation , treat ment, and preve ntion of vitam in D defic iency : an Endoc rine Socie ty clini darrion pract ice guide line. JCEM. 2010; 96(7) :1911 -30. Not Available [facility] ([facility]) [address] [facility], [place], [address], 06/17/2024 10:14:38 09/16/20 24 09/17/2024 LIPID PANEL cholesterol, total 168 mg/dL 100-19 9 Not Available [facility] ([facility]) [address] [facility], [place], [address], 09/17/2024 06:21:53 09/16/2009/17/2024 LIPID PANEL triglyceride s 272 mg/dL 0-149 above high normal Not Available [facility] ([facility]) [address] [facility], [place], [address], 09/17/2024 06:21:53 09/16/20 24 09/17/2024 LIPID PANEL HDL cholesterol 31 mg/dL >39 below low normal Not Available [facility] ([facility]) [address] [place], [address], 09/17/2024 06:21:53 09/16/20 24 09/17/2024 LIPID PANEL VLDL cholesterol darrion 46 mg/dL 5-40 above high normal Not Available [facility] ([facility]) [address] [place], [address], 09/17/2024 06:21:53 09/16/2009/17/2024 LIPID PANEL LDL chol calc ([facility]) 91 mg/dL 0-99 Not Available [facility] ([facility]) [address] [place], [address], 09/17/2024 06:21:53 09/16/2009/16/2024 COMP. METAB OLIC PANEL (14) glucose 107 mg/dL 70-99 above high normal Not Available [facility] ([facility]) [address] [place], [address], 09/17/2024 06:21:54 09/16/20 24 09/16/2024 COMP. METAB OLIC PANEL (14) BUN 18 mg/dL 6-24 Not Available [facility] ([facility]) [address] [place], [address], 09/17/2024 06:21:54 09/16/20 24 09/16/2024 COMP. METAB OLIC PANEL (14) sodium 138 mmol/ L 134-14 4 Not Available [facility] ([facility]) [address] [place], [address], 09/17/2024 06:21:54 09/16/20 24 09/16/2024 COMP. METAB OLIC PANEL (14) potassium 4.8 mmol/ L 3.5-5. 2 Not Available [facility] ([facility]) [address] [facility] [place], [address], 09/17/2024 06:21:54 09/16/2009/16/2024 COMP. METAB OLIC PANEL (14) chloride 100 mmol/ L 96-106 Not Available [facility] ([facility]) [address] [facility] [place], [address], 09/17/2024 06:21:54 09/16/20 24 09/16/2024 COMP. METAB OLIC PANEL (14) carbon dioxide, total 25 mmol/ L 20-29 Not Available [facility] ([facility]) [address] [facility] [place], [address], 09/17/2024 06:21:54 09/16/20 24 09/16/2024 COMP. METAB OLIC PANEL (14) calcium 10.8 mg/dL 8.7-10 .2 above high normal Not Available [facility] ([facility]) [address] [facility] [place], [address], 09/17/2024 06:21:54 09/16/2009/16/2024 COMP. METAB OLIC PANEL (14) albumin 4.8 g/dL 4.1-5. 1 Not Available [facility] ([facility]) [address] [facility] [place], [address], 09/17/2024 06:21:54 09/16/2009/16/2024 COMP. METAB OLIC PANEL (14) bilirubin, total 0.8 mg/dL 0.0-1. 2 Not Available [facility] ([facility]) [address] [facility] [place], [address], 09/17/2024 06:21:54 09/16/2009/16/2024 COMP. METAB OLIC PANEL (14) AST (SGOT) 24 IU/L 0-40 Not Available [facility] ([facility]) [address] [facility] [place], [address], 09/17/2024 06:21:54 09/16/20 24 09/16/2024 COMP. METAB OLIC PANEL (14) ALT (SGPT) 47 IU/L 0-44 above high normal Not Available [facility] ([facility]) [address] [facility], [place], [address], 09/17/2024 06:21:54 09/16/2009/17/2024 COMP. METAB OLIC PANEL (14) creatinine 1.03 mg/dL 0.76-1 .27 Not Available [facility] ([facility]) [address] [facility], [place], [address], 09/17/2024 06:21:54 09/16/2009/17/2024 COMP. METAB OLIC PANEL (14) eGFR 90 mL/mi n/1.7 3 >59 Not Available [facility] ([facility]) [address] [facility], [place], [address], 09/17/2024 06:21:54 09/16/2009/17/2024 COMP. METAB OLIC PANEL (14) BUN/creatini ne ratio 17 9-20 Not Available [facility] ([facility]) [address] [facility], [place], [address], 09/17/2024 06:21:54 09/16/2009/17/2024 COMP. METAB OLIC PANEL (14) protein, total 8.0 g/dL 6.0-8. 5 Not Available [facility] ([facility]) [address] [facility], [place], [address], 09/17/2024 06:21:54 09/16/2009/17/2024 COMP. METAB OLIC PANEL (14) globulin, total 3.2 g/dL 1.5-4. 5 Not Available [facility] ([facility]) [address] [facility], [place], [address], 09/17/2024 06:21:54 10/22/20 24 09/17/2024 COMP. METAB OLIC PANEL (14) alkaline phosphatase 114 IU/L 44-121 Not Available [facility] ([facility]) [address] [facility], [place], [address], 09/17/2024 06:21:54 09/30/20 24 10/01/2024 PTH INTAC T+DARRION CIUM, IONIZ ED calcium, ionized, serum 5.1 mg/dL 4.5-5. 6 Not Available [facility] ([facility]) [address] [facility], [place], [address], 10/01/2024 15:12:46 09/30/20 24 10/01/2024 PTH INTAC T+DARRION CIUM, IONIZ ED PTH, intact 22 pg/mL 15-65 Not Available [facility] ([facility]) [address] [facility], [place], [address], 10/01/2024 15:12:46 08/29/2008/29/2023 XR, chest No observ ation record ed. [address], [place], [address], 08/29/2023 18:38:39 12/12/19 25 12/12/2024 CT, brain , w/o contr ast No observ ation record ed. [address], [place], [address], 12/18/2024 14:38:25 12/12/19 25 12/12/2024 CT, cervi darrion spine , w/o contr ast No observ ation record ed. [address], [place], [address], 12/18/2024 14:39:58 Result Notes None recorded. Problems Name Problem SNOMED Code Status Onset Date Resolution Date Notes Provider Name and Address Organization Details Recorded Time Hypergly [facility] 76861542 Active 2016 [facility] Available [facility] 3 17:39:54 Glaucoma 95521069 Completed 201610/22/2017 diagnose d in August 2017 Ankur Martinez PA-C Attn: Accounting ,[address] [facility], [place], [address] , [place] - [facility] 7 12:15:12 Acute bronchit is 62045471 Active 2016 Not Available [facility] 3 17:39:53 Depressi ve disorder 73669373 Active 2017 Not Available [facility] 3 17:39:53 Low back pain 802618004 Active 2019 Not Available [facility] 3 17:39:53 Steatoti c liver disease 126728580 Active [address] 1 Not Available [facility] 3 17:39:53 Tachycar louann 7133156 Active 2020 Not Available [facility] 3 17:39:53 [facility] hyperten rebekah 85254155 Active 2020 Not Available [facility] 3 17:39:53 HIV screenin g Active 2021 Not Available [facility] 3 17:39:53 At increase d risk of nutritio nal deficit 648063421 Active 2021 Not Available [facility] 3 17:39:53 Liver enzymes level above referenc e range 714956029 Active 2021 Not Available [facility] 3 17:39:54 Folic acid deficien cy 330652138 Active 2021 Not Available [facility] 3 17:39:53 Vitamin D below referenc e range 473119171 Active 2021 Not Available [facility] 3 17:39:53 Vitamin D deficien cy 94856347 Active 2023 Winifred Dickey MD Attn: Accounting ,[address] , [place], [address] , [place] [facility] 4 15:17:58 Migraine 45079234 Active Not Available [facility] 3 17:39:53 Hyperlip idemia 67317395 Active Not Available [facility] 3 17:39:53 Gastroes ophageal reflux disease 124718609 Active 2016 Not Available [facility] 3 17:39:53 Chest pain 65057891 Active 2016 Not Available [facility] 3 17:39:53 Cough 08368273 Active 2016 Not Available [facility] 3 17:39:53 Thyroid disorder screenin g Active 2016 Not Available [facility] 3 17:39:53 Urethrit is 67843997 Active 2016 Not Available [facility] 3 17:39:53 Problem Notes None recorded. Procedures Surgical History Date Name Laterality Status Provider Name and Address Organization Details Recorded Time 08/21/2017 AIMS completed Jovana Armenta [place] - [facility] 08/21/2017 11:30:07 08/21/2017 SLUMS EXAM completed Jovana Armenta MA [place] - [facility] 08/21/2017 11:30:07 Imaging Results Imaging Date Name Status LastModified by Organiz ation Details LastModified Time 08/29/2023 XR[facility] [address] [place] [address], [id number], 08/29/2023 18:38:39 12/12/2024 CT, brain, w/o contrast completed [address] [place] [address], [id number], 12/18/2024 14:38:25 12/12/2024 CT, cervical spine, w/o contrast completed [address] [place] [address], [id number], 12/18/2024 14:39:58 Procedure Notes None recorded. Medical Equipment None Reported. Allergies No known drug allergies Medications Name Sig Start Date Stop Date Status Note LastModified by Organization Details LastModified Time Prescript ion - Prior Authoriza tion Request 04/14 completed Not Available Not Available Not Available losartan 50 mg tablet TAKE 1 TABLET BY MOUTH EVERY DAY IN THE MORNING 2023 active Not Available Not Available Not Avai lable cyclobenz aprine 10 mg tablet TAKE 1 TABLET BY MOUTH EVERY 8 HOURS 04/14 completed Not Available Not Available Not Available amoxicill in 500 mg capsule 10/22 completed Not Available Not Available Not Available promethaz ine-DM 6.25 mg-15 mg/5 mL oral syrup Take 5 mL 3 times a day by oral route as needed for 15 days. 07/14 completed Not Available Not Available Not Available atorvasta tin 20 mg tablet TAKE 1 TABLET BY MOUTH EVERY DAY IN THE MORNING 2024 active Not Available Not Available Not Avai lable azithromy regina 250 mg tablet TAKE 2 TABLETS (500 MG) BY ORAL ROUTE ONCE DAILY FOR 1 DAY THEN 1 TABLET (250 MG) BY ORAL ROUTE ONCE DAILY FOR 4 DAYS 07/14 completed Not Available Not Available Not Available ibuprofen 800 mg tablet TAKE 1 TABLET BY MOUTH TWICE DAILY FOR 10 DAYS 12/13 completed Not Available Not Available Not Available sumatript an 100 mg tablet Take 1 tablet as needed by oral route for 9 days. 04/16 completed not helping ... Not Available Not Available Not Available hydrocodo ne 5 mg-acetam inophen 325 mg tablet 10/22 completed Not Available Not Available Not Available phenazopy ridine 200 mg tablet Take 1 tablet 3 times a day by oral route for 2 days. 06/16 completed Not Available Not Available Not Available topiramat e 25 mg tablet Take 1 tablet every day by oral route at bedtime for 7 days. 02/15 completed Not Available Not Available Not Available metronida zole 500 mg tablet Take 1 tablet twice a day by oral route for 7 days. 02/15 completed Not Available Not Available Not Available acetamino phen 300 mg-codein e 30 mg tablet 07/14 completed Not Available Not Available Not Available ciproflox acin 500 mg tablet TAKE 1 TABLET BY MOUTH EVERY 12 HOURS FOR 10 DAYS 03/11 completed Not Available Not Available Not Available amoxicill in 500 mg tablet TAKE 1 TABLET BY MOUTH THREE TIMES DAILY FOR 10 DAYS 06/07 completed Not Available Not Available Not Available dicyclomi ne 20 mg tablet TAKE 1 TABLET BY MOUTH THREE TIMES DAILY 05/02 completed Not Available Not Available Not Available meclizine 25 mg tablet TAKE 1 TABLET BY MOUTH EVERY 8 HOURS NEEDED FOR DIZZINES S. MAY CAUSE DROWSINE SS 04/14 completed Not Available Not Available Not Available phenazopy ridine 100 mg tablet 10/22 completed Not Available Not Available Not Available rizatript an 10 mg disintegr ating tablet TAKE 1 TABLET BY MOUTH NEEDED DIRECTED FOR 9 DAYS 04/14 completed Not Available Not Available Not Available cephalexi n 500 mg capsule TAKE 1 CAPSULE BY MOUTH EVERY 6 HOURS FOR 10 DAYS 10/25 completed Not Available Not Available Not Available ranitidin e 150 mg tablet Take 1 tablet twice a day by oral route before meals for 30 days. 02/15 completed Not Available Not Available Not Available folic acid 1 mg tablet Take 1 tablet every day by oral route with meals for 90 days. 03/11 completed Not Available Not Available Not Available ibuprofen 600 mg tablet TAKE 1 TABLET BY MOUTH EVERY 6 HOURS WITH FOOD NEEDED 10/25 completed Not Available Not Available Not Available ondansetr on 4 mg disintegr ating tablet 07/14 completed Not Available Not Available Not Available naproxen 500 mg tablet TAKE 1 TABLET BY MOUTH TWICE DAILY WITH FOOD 04/14 completed Not Available Not Available Not Available amoxicill in 875 mg-potass ium clavulana te 125 mg tablet 02/15 completed Not Available Not Available Not Available cholecalc iferol (vitamin D3) 25 mcg (1,000 unit) capsule Take 1 capsule every day by oral route with meals for 30 days. 07/17 completed Not Available Not Available Not Available escitalop luis alberto 10 mg tablet Take 1 tablet every day by oral route in the evening for 30 days. 07/14 completed Not Available Not Available Not Available omega-3 acid ethyl esters 1 gram capsule 10/25 completed Not Available Not Available Not Available Vitamin D3 50 mcg (2,000 unit) capsule Take 1 capsule every day by oral route as directed for 90 days. 2021 active Not Available Not Available Not Avai lable Nurtec ODT 75 mg disintegr ating tablet Take 1 tablet as needed by oral route for 8 days. 04/02 completed Not Available Not Available Not Available BinaxNOW COVID-19 Ag Self Test kit TEST DIRECTED TODAY 04/02 completed Not Available Not Available Not Available Vitals Date Recorded Body height Body mass index (BMI) Body weight Heart rate Oxygen saturation Oxygen saturation in Arterial blood by Pulse oximetry Systolic blood pressure Diastolic blood pressure Provider Name and Address Organization Details Last Updated DateTime 3 193.04 cm 27 kg/m2 613903. 51 g 102 /min 98 % 98 % 130 mm[Hg] 78 mm[Hg] Ana Cristina Waters MA [facility] 3 16:45:39 Date Recorded Body height Body mass index (BMI) Body weight Heart rate Oxygen saturation Oxygen saturation in Arterial blood by Pulse oximetry Systolic blood pressure Diastolic blood pressure Provider Name and Address Organization Details Last Updated DateTime 4 193.04 cm 28.5 kg/m2 741564. 61 g 98 /min 97 % 97 % 126 mm[Hg] 78 mm[Hg] Rafaela Glez MA [facility] 4 15:04:12 Date Recorded Body height Body mass index (BMI) Body weight Heart rate Oxygen saturation Oxygen saturation in Arterial blood by Pulse oximetry Systolic blood pressure Diastolic blood pressure Provider Name and Address Organization Details Last Updated DateTime 4 193.04 cm 28.2 kg/m2 929859. 43 g 90 /min 98 % 98 % 118 mm[Hg] 86 mm[Hg] Jennifer Hollingsworth [place] - [facility] 4 16:02:20 Date Recorded Body height Body mass index (BMI) Body weight Heart rate Oxygen saturation Oxygen saturation in Arterial blood by Pulse oximetry Systolic blood pressure Diastolic blood pressure Provider Name and Address Organization Details Last Updated DateTime 4 193.04 cm 27 kg/m2 440806. 43 g 100 /min 97 % 97 % 120 mm[Hg] 66 mm[Hg] Jennifer Hollingsworth MA [facility] 4 10:58:42 Date Recorded Body height Body mass index (BMI) Body weight Heart rate Oxygen saturation Oxygen saturation in Arterial blood by Pulse oximetry Systolic blood pressure Diastolic blood pressure Provider Name and Address Organization Details Last Updated DateTime 5 193.04 cm 28.1 kg/m2 218120. 2 g 92 /min 95 % 95 % 112 mm[Hg] 80 mm[Hg] Candice Esteban [place] - [facility] 17:03:08 Social History Question Answer Notes LastModified by Organizat ion Details LastModified Time Tobacco Smoking Status Never Smoker Prisca ROSANNA [place], [place] - [facility] 03/09/2016 12:11:13 Do You Have An Advance Directive? No Information n ot available 07/14/2019 What Is Your Level Of Alcohol Consumption? None Information not available 07/14/2019 Are You Blind Or Do You Have Difficulty Seeing? No Information n ot available 05/02/2021 What Is Your Level Of Caffeine Consumption? Heavy Information not available 07/14/2019 How Much Tobacco Do You Chew? None Information not available 07/14/2019 In The 14 Days Before Symptom Onset, Have You Had Close Contact With A Laboratory-confirm ed COVID-19 While That Case Was Ill? No Information n ot available 09/16/2024 In The 14 Days Before Symptom Onset, Have You Had Close Contact With A Person Who Is Under Investigation For COVID-19 While That Person Was Ill? No Information not available 09/16/2024 Have You Been To An Area Known To Be High Risk For COVID-19? No Information not available 09/16/2024 Are You Currently Employed? Yes Information not available 05/02/2021 Are You Deaf Or Do You Have Serious Difficulty Hearing? No Information not available 05/02/2021 What Type Of Diet Are You Following? REGULAR Information n ot available 05/02/2021 Which Illicit Or Recreational Drugs Have You Used? 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 No Information not available 09/16/2024 Marital Status Informati on not available 07/14/2019 What Was The Date Of Your Most Recent Tobacco Screening? 01/20/2025 Information not available 01/20/2025 How Many Children Do You Have? 4 Information not available 05/02/2021 What Is Your Relationship Status? Information not available 05/02/2021 Do You Use Your Seat Belt Or Car Seat Routinely? Yes Information not available 05/02/2021 Do You Have Smoke And Carbon Monoxide Detectors In Your Home? Yes Information not available 05/02/2021 Are You Passively Exposed To Smoke? No Information no t available 05/02/2021 Do You Feel Stressed (tense, Restless, Nervous, Or Anxious, Or Unable To Sleep At Night)? [id number] Information not available 05/02/2021 Do You Use Any Illicit Or Recreational Drugs? Yes [email or web address] Information not available 10/25/2022 Do You Use Sunscreen Routinely? Yes Information not available 09/16/2024 Has Tobacco Cessation Counseling Been Provided? No Information not available 09/16/2024 On What Date Was Tobacco Cessation Counseling Provided? 01/20/2025 Information not available 01/20/2025 Sex: Male Functional Status Question Answer Note LastModified by Organizat ion Details LastModified Time Are you able to care for yourself? Yes Information not available 05/02/2021 What is your exercise level? Occasional Information not available 07/14/2019 Mental Status None recorded. Family History Relationship Description Onset Age of this Age Resolved Age Notes LastModified by Organization Details LastModified Time Mother Diabetes mellitus [email or web address] Not available 2015 12:11:02 Father Diabetes mellitus [email or web address] Not available 2015 12:11:02 Father Hypertensive disorder [email or web address] Not available 2015 12:11:02 Father Heart disease [email or web address] Not available 2015 12:11:02 Father Migraine [email or web address] Not availabl e 03/09/2016 12:11:02 Father Malignant neoplasm of lung 2015 [email or web address] Not available 08/21/2017 11:31:28 Medical History Condition Response Coronary Artery Disease N Other N High Blood Pressure N Atrial Fibrillation N Thyroid Problems N Kidney or Bladder Problems N Blood Clots N COPD N Depression N GI Problems N Skin Problems N Anemia N Heart Attack ([place]) N Anxiety Disorder N Diabetes N Muscle, Joint, or Bone Problems N Seizures/Epilepsy N Acid Reflux (GERD) N Cancer N Stroke N Asthma N Allergies N High Cholesterol Y Hepatitis N Liver Disease N Headaches Y Heart Failure N Osteoporosis N Immunizations Vaccine Type Date Status Note Provider Nam e and Address Organization Details Recorded Time COVID-19, mRNA, LNP-S, PF, 100 mcg/0.5mL dose or 50 mcg/0.25mL dose 01/22/2021 completed [place]NA [place] [facility] 01/20/2025 16:59:28 COVID-19, mRNA, LNP-S, PF, 100 mcg/0.5mL dose or 50 mcg/0.25mL dose 02/11/2021 [place] [facility] 01/20/2025 16:59:28 COVID-19, mRNA, LNP-S, PF, 30 mcg/0.3 mL dose 01/22/2021 [place] [facility] 01/20/2025 16:59:28 COVID-19, mRNA, LNP-S, PF, 30 mcg/0.3 mL dose 02/11/2021 [place] ROS[place] [facility] 01/20/2025 16:59:28 Past Encounters Encounter ID Performer Location Encounter Start Date Encounter Closed Date Diagnosis/Indication Diagnosis SNOMED-CT Code Diagnosis ICD10 Code Diagnosis Note [id number] ASHLEY Beryr (Adult Med) [address] [place] [id number] 03/09/2016 11:27:57 03/09/2016 12:58:42 Migraine 05148384 G43.909 no warnings , just full blown Hyperlipidemia 33161664 E78.5 [id number] ASHLEY Berry (Adult Med) [address] [place] [id number] 01/08/2017 09:59:39 01/08/2017 18:06:12 Gastroesophageal reflux disease 594919270 K21.9 Hyperlipidemia 73087038 E78.5 Migraine 09329938 G43.90 9 no warnings , just full blown Chest pain 25775473 R07. 9 intermitte nt for 2 years coming on more frequently . now once per week Cough 92471565 R05 Thyroid di sorder screening 596577778 Z13.29 [id number] ASHLEY Berry (Adult Med) [address] [place] [address] [id number] 08/21/2017 11:08:43 08/21/2017 16:46:48 Adult health examination 034223854 Z00.00 Hyperlipidemia 58490314 E78.5 Migraine 07012117 G43.90 9 no warnings , just full blown Gastroesop hageal reflux disease 575037726 K21.9 Thyroid di sorder screening 866131389 Z13.29 Urethritis 81532496 N34. 2 [id number] ASHLEY Berry (Adult Med) [address] [place] [address] [id number] 0 10/22/2017 10:50:58 10/22/2017 17:00:43 Gastroesophageal reflux disease 672654990 K21.9 Migraine 36695111 G43.90 9 Hyperlipidemia 90354352 E78.5 Hyperglycemia 79653616 R 73.9 Urethritis 45770400 N34. 2 [id number] ASHLEY Berry (Adult Med) [address] [place] [address] [id number] 11/21/2017 10:23:39 11/21/2017 11:03:16 Cough 14863366 R05 Acute bronchitis 4197071 2 J20.9 Gastroesop hageal reflux disease 319417766 K21.9 Migraine 76871028 G43.90 9 Hyperlipidemia 19752143 E78.5 [id number] ASHLEY Berry (Adult Med) [address] [place] [address] [id number] 0 06/27/2018 11:41:10 06/27/2018 16:51:08 Acute bronchitis 37983623 J20.9 Migraine 65138580 G43.90 9 Gastroesop hageal reflux disease 071776376 K21.9 Depressive disorder 3548 9007 F32.89 Cough 06301972 R05 Hyperlipidemia 34966448 E78.5 [id number] ASHLEY Berry (Adult Med) [address] [place] [address] [id number] 0 07/14/2019 11:41:53 07/15/2019 09:18:20 Gastroesophageal reflux disease 372132346 K21.9 Migraine 34002728 G43.90 9 Hyperglycemia 24358423 R 73.9 Hyperlipidemia 89658555 E78.5 Depressive disorder 3548 9007 F32.89 [id number] ASHLEY Berry (Adult Med) [address] [place] [address] [id number] 02/16/2020 14:35:36 02/16/2020 15:08:22 Migraine 99367187 G43.909 Hyperlipidemia 53435693 E78.5 Gastroesop hageal reflux disease 658335118 K21.9 Depressive disorder 3548 9007 F32.89 [id number] ASHLEY Berry (Adult Med) [address] [place] [address] [id number] 03/23/2020 09:52:02 03/23/2020 10:49:30 Urethritis 69704003 N34.2 Migraine 81932727 G43.90 9 [id number] ASHLEY Berry (Adult Med) [address] [place] [address] [id number] 04/16/2020 08:19:15 04/16/2020 11:27:09 Migraine 93650373 G43.909 Low back pain 400311659 M54.5 Gastroesop hageal reflux disease 562993128 K21.9 Hyperlipidemia 85967829 E78.5 Depressive disorder 3548 9007 F32.89 [id number] ASHLEY Berry (Adult Med) [address] [place] [address] [id number] 06/16/2020 10:06:13 06/16/2020 12:37:18 Migraine 79196993 G43.909 Depressive disorder 3548 9007 F32.89 Gastroesop hageal reflux disease 817906445 K21.9 Hyperlipidemia 12959449 E78.5 [id number] ASHLEY Berry (Adult Med) [address] [place] [address] [id number] 0 05/02/2021 09:03:30 05/02/2021 16:49:28 Depressive disorder 65710636 F32.89 Gastroesop hageal reflux disease 855581384 K21.9 Hyperlipidemia 32912594 E78.5 Low back pain 896367601 M54.5 Migraine 66985077 G43.90 9 Steatotic liver disease 229352147 K76.0 Tachycardia 5533596 R00. 0 [id number] ASHLEY Berry (Adult Med) [address] [place] [address] [id number] 11/11/2021 15:50:49 11/11/2021 17:07:50 Essential hypertension 17190447 I10 Gastroesop hageal reflux disease 667851162 K21.9 Hyperlipidemia 51872880 E78.5 Low back pain 080464988 M54.50 Migraine 16571992 G43.90 9 Steatotic liver disease 969007173 K76.0 [id number] ASHLEY Berry (Adult Med) [address] [place] [address] [id number] 0 04/14/2022 16:21:39 04/17/2022 16:36:22 Essential hypertension 85967258 I10 Gastroesop hageal reflux disease 874672566 K21.9 Migraine 18270460 G43.90 9 HIV screening 595324444 Z11.4 Hyperlipidemia 01873356 E78.5 Low back pain 783183523 M54.50 [id number] ASHLEY Berry (Adult Med) [address] [place] [address] [id number] 0 06/14/2022 10:47:33 06/19/2022 08:22:57 Essential hypertension 65840045 I10 Hyperlipidemia 62311039 E78.5 Hyperglycemia 08162828 R 73.9 Gastroesop hageal reflux disease 070750235 K21.9 At [facility] risk of nutritional deficit 847768134 Z91.89 Vitamin D below reference range 699764052 E55.9 Depressive disorder 3548 9007 F32.89 Migraine 02932186 G43.90 9 Steatotic liver disease 222350783 K76.0 [id number] ASHLEY Berry (Adult Med) [address] [place] [address] [id number] 0 07/17/2022 16:45:29 07/18/2022 08:08:31 Essential hypertension 48702998 I10 Gastroesop hageal reflux disease 053142780 K21.9 Hyperlipidemia 98537095 E78.5 Low back pain 289849323 M54.50 Chest pain 74893100 R07. 9 intermitte nt for 2 years coming on more frequently . now once per week Vitamin D below reference range 849138357 E55.9 Folic acid deficiency 19 8349257 E53.8 Steatotic liver disease 047638752 K76.0 Depressive disorder 3548 9007 F32.89 [id number] ASHLEY Berry (Adult Med) [address] [place] [address] [id number] 0 09/14/2022 13:56:58 09/15/2022 15:44:26 Vitamin D below reference range 814543684 E55.9 Migraine 25614743 G43.90 9 Essential hypertension 29769972 I10 Folic acid deficiency 19 2035440 E53.8 Gastroesop hageal reflux disease 289711211 K21.9 Hyperlipidemia 52856140 E78.5 Steatotic liver disease 190893528 K76.0 [id number] [facility] [address] [place] [address] [id number] 0 10/25/2022 10:42:32 10/27/2022 13:21:24 Overweight 126817860 E66.3 His BMI is 27.8. diet, exercise and keep the weight down. Vitamin D below reference range 521558725 E55.9 Will add vitamin D supplement . Essential hypertension 29060362 I10 As 10-25-2022 . his blood pressure is 126/78. will refill the med. To be on low salt, avoid NSAID Folic acid deficiency 19 8726738 E53.8 will refill med. Gastroesop hageal reflux disease 978327347 K21.9 Stable. Hyperlipidemia 23952176 E78.5 Low animal fat diet. Will refill med. Administra tion of diphtheria, pertussis, and tetanus vaccine 485652349 Z23 he declines today. 10-25-2022 . Influenza vaccination declined 852497495 Z28.21 He declines today 10-25-2022 . [id number] MD Jareth Zarate (Adult Med) [address] [place] [address] [id number] 0 04/02/2023 16:59:29 04/05/2023 16:46:03 Right lower quadrant pain 138056002 R10.31 RLQ abdomen pain. off and on for 2-3 weeks. also has family history of cancer, Screening for malignant neoplasm of colon 352759933 Z12.11 Booklet provided and brief instructio ns. Essential hypertension 05605901 I10 As 10-25-2022 . his blood pressure is 126/78. will refill the med. To be on low salt, avoid NSAID BP is 128/70 as 04-02-23. Gastroesop hageal reflux disease 793988448 K21.9 Stable. Hyperlipidemia 05004385 E78.5 Low animal fat diet. Will refill med. Steatotic liver disease 831471697 K76.0 Stable. Folic acid deficiency 19 6635603 E53.8 will refill med. Vitamin D below reference range 707400916 E55.9 Will add vitamin D supplement . Overweight 595908154 E66 .3 His BMI is 27.8. diet, exercise and keep the weight down. [id number] MD Jareth Zarate (Adult Med) [address] [place] [address] [id number] 0 06/07/2023 11:35:20 06/11/2023 15:11:41 Overweight 688193710 E66.3 His BMI is 27.8. diet, exercise and keep the weight down. Essential hypertension 97645998 I10 As 10-25-2022 . his blood pressure is 126/78. will refill the med. To be on low salt, avoid NSAID BP is 128/70 as 04-02-23. On losartan, BP today is 126.78,. Dyslipidemia 944695698 E 78.5 Low animal fat diet, on atorvastat in,. [id number] MD Jareth Zarate (Adult Med) [address] [place] [address] [id number] 0 09/06/2023 16:34:10 09/10/2023 14:55:04 Essential hypertension 14986211 I10 As 10-25-2022 . his blood pressure is 126/78. will refill the med. To be on low salt, avoid NSAID BP is 128/70 as 04-02-23. On losartan, BP today is 126./78,. As 09-06-23. BP is 130/78. to continue losartan. Folic acid deficiency 19 3991419 E53.8 will refill med. Hyperlipidemia 27621493 E78.5 Low animal fat diet. Will refill med. Steatotic liver disease 587901890 K76.0 Stable. Overweight 945172954 E66 .3 His BMI is 27.8. diet, exercise and keep the weight down. as 09-06-23, BMI down to 27. [id number] Destinee Leslie MD [facility] (Adult Med) [address] [place] [address] [id number] 0 12/13/2023 14:54:52 12/14/2023 16:06:18 Overweight 827873067 E66.3 His BMI is 27.8. diet, exercise and keep the weight down. as 09-06-23, BMI down to 27. Folic acid deficiency 19 9127264 E53.8 will refill med. Urinary tr act infectious disease 20146280 N39.0 Burning sensation while urinating. No prostate issue, He just emptying his bladder before office visit, no urine specimen can be collected. Will treat empiricall nazia FLORES, , he agreed for the med as ordered. [id number] MD Jareth Green (Adult Med) [address] [place] [address] [id number] 0 03/11/2024 15:38:39 03/11/2024 17:13:05 Essential hypertension 24760830 I10 Screening for malignant neoplasm of prostate 302059292 Z12.5 Vitamin D deficiency 347 44853 E55.9 Hyperlipidemia 93065836 E78.5 Steatotic liver disease 284696354 K76.0 [id number] MD Jareth Green (Adult Med) [address] [place] [address] [id number] 0 09/16/2024 10:49:45 09/16/2024 11:50:36 Overweight 788493365 E66.3 Essential hypertension 65228525 I10 Hyperlipidemia 65402196 E78.5 Gastroesop hageal reflux disease 725757635 K21.9 [id number] Winifred Dickey MD [facility] (Adult [facility]) [address] [place] [address] 01/20/2025 16:20:27 01/20/2025 17:37:12 Body mass index 25-29 - overweight 446488090 Z68.28 Overweight 060326280 E66 .3 Essential hypertension 83832316 I10 Fatigue 08826775 R53.83 Gastroesop hageal reflux disease 842547650 K21.9 Hyperlipidemia 01037577 E78.5 Health Concerns Section Related Observation LastModified by Organization Detai ls LastModified Time None Recorded Concern Status LastModified by Organization Details LastModified Time None Recorded Advance Directives Directive N: Payers Encounter Date Sequence Insurance Name Policy Number Policy Palma Covered Member ID Palma Member ID Guarantor Name 09/06/2023 1 *SELF PAY* Br adley Rojas 12/13/2023 1 *SELF PAY* Br adley Rojas 03/11/2024 1 *SELF PAY* Br adley Rojas 09/16/2024 1 *SELF PAY* Br adley Rojas Notes Date Note Type Note Provider Name and Address Organization Details Recorded Time 09/06/2023 text/html Office visit, awan s enough med refill. Recently went to ER of [facility] for chest pain, not coronary. was released. No special complaints. Destinee Leslie MD Attn: Accounting[address] [place], [address], [facility] [place] 09/06/2023 17:50:22 12/13/2023 text/html Office visit. NK DA. Check up and med refill. No chest pain., no shortness, no fever. ROS as noted in HPI. Destinee Leslie MD Attn: Accounting,[address] [place], [address], [facility] [place] 12/14/2023 12:24:53 03/11/2024 text/html 48-year-old come s in to follow-up on medical problems has a history of hypertension hyperlipidemia low vitamin D level and hepatic steatosis. 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 Hyperlipidemia taking the atorvastatin trying to follow a low-fat diet. He has had right ear pain off and on had problems for some time he was told he needs to wear hearing aid which he has refused to do GERD has been stable with conservative management and watch in his diet Winifred Dickey MD Attn: Accounting, [address] , [place], [address], [facility] [place] 09/16/2024 21:53:52 01/20/2025 text/html hypertension no headache or dizziness. GERD no nausea no vomiting. Dyslipidemia it is trying to follow a low-fat diet he has been tired for several months with no other specific symptoms Winifred Dickey MD Attn: Accounting, [address] , [place], [address], [facility] 01/20/2025 17:52:12
--- NOTE | 2025-03-23 16:55 | PC.NURSE ---
This RN calls for patient at [phone] with no answer to see SRINIVAS Chong. this RN calls for patient again at [phone] with no answered. pt does not notify staff of leaving before they do so.
--- OUTSIDE RECORDS SUMMARY | 2025-03-23 18:31 | XMS_ITS | Clinical Summary ---
Demographics Address [facility] [birth year][address] [address] Home Phone Preferred Language Unknown Marital Status Unknown Latter Day Affiliation Unknown Race White Ethnic Group Unknown Author Organization [facility] Address [facility] [place] [address] Care Team Providers Care Early Childhood Educator Aide Name Role Phone Unavailable Primary Care Provider [...]
--- OUTSIDE RECORDS SUMMARY | 2025-03-23 18:31 | XMS_ITS | CONTINUITY OF CARE DOCUMENT ---
Author Name [email or web address] Address Unknown Organization [facility] Address [address] [place] [address] Phone [phone] Care Team Providers Care Painter Spray Name Role Phone Colby Agrawal MD Unavailable [phone] ADRIANA WOODARD Unavailable ADRIANA WOODARD Unavailable PROBLEMS Condition Status Date Provider Notes Dyslipidemia active [place] Liver steatosis active Colby Agrawal MD ENCOUNTERS Date Type Provider Location Encounter Diagnosis - In-person encounter Office Visit Colby Agrawal MD [facility] Liver steatosis - In-person encounter Office Visit Colby Agrawal MD [facility] VITAL SIGNS Date Observation Value Provider [...] Oswaldo eph [place] pulse rate 72 /min [place] respiratory rate E&M 16 /min [place] weight E&M 183 [lb_av] [place] ALLERGIES No Known Drug Allergies RESULTS [...] [facility] 3.5-5.2 sodium, serum 137 mmol/L [facility] [phone]/06/ 24 urea nitrogen/creatinine ratio, serum 18 [facility] 9-20 eGFR if 108 mL/min/{1 .73_m2} [facility] >59 eGFR if not 93 mL/min/{1 .73_m2} [facility] >59 creatinine, serum 0.98 mg/dL [facility] 0.76-1.27 urea nitrogen, blood 18 mg/dL [facility] 6-24 blood glucose, random 127 [facility] High thyroid stimulating hormone, serum 0.775 [...] social history E&M Marital Statu s: L ajyden with family/friends E thnicity: Kole Turcios RN [...] Policy type / Coverage type [place] red green party [place] MEDICAID (2) Medicaid [id number] ADVANCE DIRECTIVES Name Date DISCUSSED - NO DECISION MADE TREATMENT PLAN Date Name Performer [id number],S, Dinora navas [id number],C,N o recurrence for the past 10-15 years per patient report. Colby Agrawal MD [id number],C,C ontinues on Lipitor. Lipid panel pending. Colby Agrawal MD [id number],C,P alpitations for the past month. Will arrange [...]
== END 2025-03-23 17:41 | disposition left against medical advice (07) ==
LOC: ANHED 17:17
PROVIDERS: PCP Internal Medicine
DX: R22.1 Localized swelling, mass and lump, neck (principal)
CPT/HCPCS: 99199

== ENCOUNTER 2025-05-31 00:26 | Emergency (ER) | payer SELFPAY ==
--- OUTSIDE RECORDS SUMMARY | 2025-05-31 00:29 | XMS_ITS | Clinical Summary ---
Demographics Address [facility] [birth year][address] [address] Home Phone Preferred Language Unknown Marital Status Unknown Pentecostal Affiliation Unknown Race White Ethnic Group Unknown Author Organization [facility] Address [facility] [place] [address] Care Team Providers Care Charter Pilot Name Role Phone Unavailable Primary Care Provider [...] - 19+ 3-dose series) 1995 COVID-19 Vaccine (2023-2 5 season) 2024 Meningococcal B Vaccine Aged [...]
--- OUTSIDE RECORDS SUMMARY | 2025-05-31 02:16 | XMS_ITS | Clinical Summary ---
Demographics Address [facility]4 [birth year][address] [address] Home Phone Preferred Language Unknown Marital Status Unknown Alevism Affiliation Unknown Race White Ethnic Group Unknown Author Organization [facility] Address [facility] [place] [address] Care Team Providers Care Personnel Representative Name Role Phone Unavailable Primary Care Provider [...]
== END 2025-05-31 01:47 | disposition left against medical advice (07) ==
LOC: ANHED 02:14
PROVIDERS: PCP Internal Medicine
DX: Z53.21 Procedure and treatment not carried out due to patient leaving prior to being seen by health care provider (principal)
CPT/HCPCS: 99199

== ENCOUNTER 2025-09-14 16:34 | Outpatient (CLI) | payer OTHER, SELFPAY ==
--- NOTE | ~2025-09-14 | CT_ITS ---
EXAMINATION: CT brain wo con COMPARISON: None HISTORY: nonintractable headache TECHNIQUE: Axial images were obtained through the brain without IV contrast. CT scan performed using dose optimization techniques including the following automated exposure control; adjustment of mA and/or kV; use of iterative reconstruction technique. Automatic exposure control was used to reduce radiation dose. Permanent radiation dose record is archived to PACS. FINDINGS: No acute infarct or parenchymal hemorrhage. No abnormal mass or mass effect. No midline shift. No extra-axial fluid collections. No hydrocephalus. . Mastoid air cells unremarkable. Sinuses and orbits unremarkable. No acute fracture. No significant facial or scalp soft tissue swelling evident. No radiopaque foreign body is seen. Impression: 1.No acute intracranial abnormality. Reviewed, dictated and finalized at location P. Impression: 1.No acute intracranial abnormality.
[2025-09-14 17:00] LABS: Hematocrit 43.0 % (42.0-52.0); Hemoglobin 15.1 g/dL (14.0-18.0); Immature Granulocyte Percent A 0.2 % (0-0.5); Lymphocytes Absolute Auto 2.37 K/mm3 (0.9-3.2); Mean Corpuscular HGB Conc 35.1 g/dl (32-36); Mean Corpuscular Hemoglobin 31.3 pg (26-34); Mean Corpuscular Volume 89.0 fl (80-100); Nucleated Red Blood Cells Absolute Auto 0.000 K/mm3 (0.0-0.012); Nucleated Red Blood Cells Perc 0.0 % (0.0-0.2); Platelet Count Result 258 k/mm3 (150-375); Red Blood Count 4.83 M/mm3 (4.6-6.20); White Blood Count 8.9 K/mm3 (4.5-10.0)
[2025-09-14 17:14] LABS: Alanine Aminotransferase 48 U/L (6-50); Albumin Level 4.8 g/dL (3.5-5.1); Alkaline Phosphatase 94 U/L (38-126); Anion Gap 11 mmol/L (4-12); Aspartate Amino Transferase 35 U/L (17-59); Bilirubin,Total 1.4 mg/dL (0.2-1.3); Blood Urea Nitrogen 20 mg/dL (9-20); CRP < 0.5 mg/dL (<1.0); Calcium 9.7 mg/dL (8.4-10.2); Carbon Dioxide 25 mmol/L (22-30); Chloride 101 mmol/L (98-107); Estimated Glomerular Filt Rate > 60; Glucose 127 mg/dL (65-110); Potassium 4.1 mmol/L (3.4-5.0); Sodium 137 mmol/L (137-145); Total Protein 8.4 g/dL (6.3-8.2)
--- OUTSIDE RECORDS SUMMARY | 2025-09-14 18:50 | XMS_ITS | Clinical Summary ---
Demographics Address [facility] [birth year][address] [address] Home Phone Preferred Language Unknown Marital Status Unknown Restoration Affiliation Unknown Race White Ethnic Group Unknown Author Organization [facility] Address [facility] [place] [address] Care Team Providers Care Switchboard Operator Assistant Name Role Phone Unavailable Primary Care Provider [...] COVID-19 Vaccine ( - 2023-2 5 season) 2025 Influenza Adult (#1) 2025 Hepatitis A Vaccines Aged Out No long er eligible based on patient's age to complete this topic Meningococcal B Vaccine Aged Out No l [...]
== END 2025-09-14 16:35 | disposition home or self-care (01) ==
LOC: ANHIMG 16:35
PROVIDERS: PCP Internal Medicine; Visit Provider Internal Medicine
DX: R51.9 Headache, unspecified (principal)
CPT/HCPCS: 36415; 70450; 80053; 85025; 85652; 86140